=== PATIENT | male | born 1960 | race African-American/Black ===

== ENCOUNTER 2019-08-25 21:28 | Emergency (ER) | payer SELFPAY ==
[2019-08-25 21:39] VITALS: BP 131/80; PULSE 95; TEMP 98.1; BMI 21.9
[2019-08-25] MEDS ORDERED: LIDOCAINE PATCH REMOVAL MC SCH (22:00)
--- NOTE | 2019-08-25 22:12 | PDOC ---
History of Present Illness - General Chief Complaint: Pain Stated Complaint: BACK/LEG PAIN Time Seen by Provider: 08/25/19 22:02 - History of Present Illness Initial Comments: 08/25/19 22:10 CHIEF COMPLAINT: fall HISTORY OF PRESENT ILLNESS: 59 yo with hx of stroke (on Plavix) with residual left sided weakness, diabetes, presents to ED with pain to L leg and low back. Patient reports being in physical therapy after his stroke but had to discontinue due to insurance problems after moving from [place]. Patient states he was walking backwards down the stairs at a friend's house in order to hold on to the only available railing and tripped and fell, hitting his back. Patient denies any trauma to head or LOC. Patient denies any difficulty with speech, change in vision, dizziness, or headache at this time. No recent travel or sick contacts. PAST MEDICAL HISTORY: stroke FAMILY HISTORY: Denies SOCIAL HISTORY: Denies tobacco, alcohol, illicit drug use. SURGICAL HISTORY: Denies ALLERGIES: No known drug allergies REVIEW OF SYSTEMS General/Constitutional: Denies fever or chills. Denies weakness, weight change. HEENT: Denies change in vision. Denies ear pain or discharge. Denies sore throat. Cardiovascular: Denies chest pain or shortness of breath. Respiratory: Denies cough, wheezing, or hemoptysis. Gastrointestinal: Denies nausea, vomiting, diarrhea or constipation. Denies rectal bleeding. Genitourinary: Denies dysuria, frequency, or change in urination. Musculoskeletal: Pain to L leg and back. Skin: Denies rash or easy bruising. Neurologic: Denies headache, vertigo, loss of consciousness, or loss of sensation. Psychiatric: Denies depression or anxiety. PHYSICAL EXAM General Appearance: Well-appearing, appropriately dressed. No apparent distress , no intoxication. HEENT: EOMI, PERRLA, normal ENT inspection, normal voice, TMs normal, pharynx normal. No conjunctival pallor. No photophobia, scleral icterus. Neck: Supple. Trachea midline. No tenderness, rigidity, carotid bruit, stridor , lymphadenopathy, or thyromegaly. Respiratory/Chest: Lungs CTAB. No shortness of breath, chest tenderness, respiratory distress, accessory muscle use. No crackles, rales, rhonchi, stridor , wheezing, dullness Cardiovascular: RRR. S1, S2. No JVD, murmur, bradycardia, tachycardia. Vascular Pulses: Dorsalis-Pedis (R): 2+, Dorsalis-Pedis (L): 2+ Gastrointestinal/Abdominal: Normal bowel sounds. Abdomen soft, non-distended. No tenderness or rebound tenderness. No organomegaly, pulsatile mass, guarding , hernia, hepatomegaly, splenomegaly. Lymphatic: No adenopathy, tenderness. Musculoskeletal/Extremities: Patient ambulatory with cane at baseline with chronic weakness to LUE and LLE. No erythema, ecchymosis, or swelling to L leg. No midline tenderness to spin. Mild tenderness to paravertebral muscles at L3-L5. Normal inspection. FROM of all extremities, normal capillary refill. Pelvis Stable. No CVA tenderness. No tenderness to extremities, pedal edema, swelling, erythema or deformity. Integumentary: Appropriate color, dry, warm. No cyanosis, erythema, jaundice or rash Neurologic: can intake worker II-XII intact. Fully oriented, alert. Appropriate mood/affect. Motor strength 5/5. No appreciable EOM palsy, facial droop or sensory deficit. Past History - Past Medical History Allergies/Adverse Reactions: Allergies Allergy/AdvReac Type Severity Reaction Status Date / Time No Known Allergies Allergy Verified 08/25/19 21:39 Home Medications: Ambulatory Orders Cyclobenzaprine HCl 10 mg PO HS #10 tablet 08/25/19 CVA: Yes (left sided weakness) COPD: No Diabetes: Yes Disorders: Yes (BPH) - Psycho Social/Smoking Cessation Hx Smoking History: Current every day smoker Number of Cigarettes Smoked Daily: 10 Information on smoking cessation initiated: No Hx Alcohol Use: Yes Drug/Substance Use Hx: No *Physical Exam - Vital Signs Last Vital Signs Temp Pulse Resp BP Pulse Ox 98.1 F 95 H 19 131/80 97 08/25/19 21:29 08/25/19 21:29 08/25/19 21:29 08/25/19 21:29 08/25/19 21:29 Medical Decision Making - Medical Decision Making 08/25/19 22:17 59 yo with hx of stroke (on Plavix) with residual left sided weakness, diabetes , presents to ED with pain to L leg and low back. -x-ray hip/knee/femur x-ray wet reads negative. -cyclobenzaprine. Advised patient to take medication as prescribed and follow up with PMR within the next week. Advised patient of signs and symptoms for return to ED. Patient verbalized understanding and agrees to plan. Discharge - Discharge Information Problems reviewed: Yes Clinical Impression/Diagnosis: Fall Qualifiers: Encounter type: initial encounter Qualified Code(s): W19.XXXA - Unspecified fall, initial encounter Leg pain Qualifiers: Laterality: left Qualified Code(s): M79.605 - Pain in left leg Condition: Stable Disposition: HOME - Admission No - Additional Discharge Information Prescriptions: Cyclobenzaprine HCl 10 mg PO HS #10 tablet - Follow up/Referral Referrals: Ortiz Chairez MD [Primary Care Provider] - Reg Menjivar MD [Staff Physician] - Silviano Olguin MD [Staff Physician] - - Patient Discharge Instructions Patient Printed Discharge Instructions: DI for Low Back Pain, DI for Leg Pain - Post Discharge Activity
[2019-08-25] MEDS ORDERED: KETOROLAC TROMETHAMINE 30 MG/1 ML VIAL IM ONE (22:19)
[2019-08-25] MEDS ORDERED: LIDOCAINE 5% TOPICAL PATCH TP ONE (22:20)
--- NOTE | 2019-08-25 22:22 | PDOC ---
History of Present Illness - General Chief Complaint: Pain Stated Complaint: BACK/LEG PAIN Time Seen by Provider: 08/25/19 22:02 - History of Present Illness Initial Comments: 08/25/19 22:21 CHIEF COMPLAINT: fall HISTORY OF PRESENT ILLNESS: 59 yo with hx of stroke (on Plavix) with residual left sided weakness, diabetes, presents to ED with pain to L leg and low back. Patient reports No recent travel or sick contacts. PAST MEDICAL HISTORY: Denies past medical history FAMILY HISTORY: Denies SOCIAL HISTORY: Lives at home with ____. Occupation: . Denies tobacco, alcohol, illicit drug use. SURGICAL HISTORY: Denies ALLERGIES: No known drug allergies REVIEW OF SYSTEMS General/Constitutional: Denies fever or chills. Denies weakness, weight change. HEENT: Denies change in vision. Denies ear pain or discharge. Denies sore throat. Cardiovascular: Denies chest pain or shortness of breath. Respiratory: Denies cough, wheezing, or hemoptysis. Gastrointestinal: Denies nausea, vomiting, diarrhea or constipation. Denies rectal bleeding. Genitourinary: Denies dysuria, frequency, or change in urination. Musculoskeletal: Denies joint or muscle swelling or pain. Denies neck or back pain. Skin and breasts: Denies rash or easy bruising. Neurologic: Denies headache, vertigo, loss of consciousness, or loss of sensation. Psychiatric: Denies depression or anxiety. Endocrine: Denies increased thirst. Denies abnormal weight change. Hematologic/Lymphatic: Denies anemia, easy bleeding, or history of blood clots. Allergic/Immunologic: Denies hives or skin allergy. Denies latex allergy. PHYSICAL EXAM General Appearance: Well-appearing, appropriately dressed. No apparent distress , no intoxication. HEENT: EOMI, PERRLA, normal ENT inspection, normal voice, TMs normal, pharynx normal. No conjunctival pallor. No photophobia, scleral icterus. Neck: Supple. Trachea midline. No tenderness, rigidity, carotid bruit, stridor , lymphadenopathy, or thyromegaly. Respiratory/Chest: Lungs CTAB. No shortness of breath, chest tenderness, respiratory distress, accessory muscle use. No crackles, rales, rhonchi, stridor , wheezing, dullness Cardiovascular: RRR. S1, S2. No JVD, murmur, bradycardia, tachycardia. Vascular Pulses: Dorsalis-Pedis (R): 2+, Dorsalis-Pedis (L): 2+ Gastrointestinal/Abdominal: Normal bowel sounds. Abdomen soft, non-distended. No tenderness or rebound tenderness. No organomegaly, pulsatile mass, guarding , hernia, hepatomegaly, splenomegaly. Lymphatic: No adenopathy, tenderness. Musculoskeletal/Extremities: Normal inspection. FROM of all extremities, normal capillary refill. Pelvis Stable. No CVA tenderness. No tenderness to extremities, pedal edema, swelling, erythema or deformity. Integumentary: Appropriate color, dry, warm. 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 Fully oriented, alert. Appropriate mood/affect. Motor strength 5/5. No appreciable EOM palsy, facial droop or sensory deficit.CHIEF COMPLAINT: HISTORY OF PRESENT ILLNESS: No recent travel or sick contacts. PAST MEDICAL HISTORY: Denies past medical history FAMILY HISTORY: Denies SOCIAL HISTORY: Lives at home with ____. Occupation: . Denies tobacco, alcohol, illicit drug use. SURGICAL HISTORY: Denies ALLERGIES: No known drug allergies REVIEW OF SYSTEMS General/Constitutional: Denies fever or chills. Denies weakness, weight change. HEENT: Denies change in vision. Denies ear pain or discharge. Denies sore throat. Cardiovascular: Denies chest pain or shortness of breath. Respiratory: Denies cough, wheezing, or hemoptysis. Gastrointestinal: Denies nausea, vomiting, diarrhea or constipation. Denies rectal bleeding. Genitourinary: Denies dysuria, frequency, or change in urination. Musculoskeletal: Denies joint or muscle swelling or pain. Denies neck or back pain. Skin and breasts: Denies rash or easy bruising. Neurologic: Denies headache, vertigo, loss of consciousness, or loss of sensation. Psychiatric: Denies depression or anxiety. Endocrine: Denies increased thirst. Denies abnormal weight change. Hematologic/Lymphatic: Denies anemia, easy bleeding, or history of blood clots. Allergic/Immunologic: Denies hives or skin allergy. Denies latex allergy. PHYSICAL EXAM General Appearance: Well-appearing, appropriately dressed. No apparent distress , no intoxication. HEENT: EOMI, PERRLA, normal ENT inspection, normal voice, TMs normal, pharynx normal. No conjunctival pallor. No photophobia, scleral icterus. Neck: Supple. Trachea midline. No tenderness, rigidity, carotid bruit, stridor , lymphadenopathy, or thyromegaly. Respiratory/Chest: Lungs CTAB. No shortness of breath, chest tenderness, respiratory distress, accessory muscle use. No crackles, rales, rhonchi, stridor , wheezing, dullness Cardiovascular: RRR. S1, S2. No JVD, murmur, bradycardia, tachycardia. Vascular Pulses: Dorsalis-Pedis (R): 2+, Dorsalis-Pedis (L): 2+ Gastrointestinal/Abdominal: Normal bowel sounds. Abdomen soft, non-distended. No tenderness or rebound tenderness. No organomegaly, pulsatile mass, guarding , hernia, hepatomegaly, splenomegaly. Lymphatic: No adenopathy, tenderness. Musculoskeletal/Extremities: Normal inspection. FROM of all extremities, normal capillary refill. Pelvis Stable. No CVA tenderness. No tenderness to extremities, pedal edema, swelling, erythema or deformity. Integumentary: Appropriate color, dry, warm. 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 Fully oriented, alert. Appropriate mood/affect. Motor strength 5/5. No appreciable EOM palsy, facial droop or sensory deficit. Past History - Past Medical History Allergies/Adverse Reactions: Allergies Allergy/AdvReac Type Severity Reaction Status Date / Time No Known Allergies Allergy Verified 08/25/19 21:39 CVA: Yes (left sided weakness) COPD: No Diabetes: Yes Disorders: Yes (BPH) - Psycho Social/Smoking Cessation Hx Smoking History: Current every day smoker Number of Cigarettes Smoked Daily: 10 Information on smoking cessation initiated: No Hx Alcohol Use: Yes Drug/Substance Use Hx: No *Physical Exam - Vital Signs Last Vital Signs Temp Pulse Resp BP Pulse Ox 98.1 F 95 H 19 131/80 97 08/25/19 21:29 08/25/19 21:29 08/25/19 21:29 08/25/19 21:29 08/25/19 21:29 ED Treatment Course - RADIOLOGY Radiology Studies Ordered: Category Date Time Status FEMUR-LEFT [RAD] Stat Radiology 08/25/19 22:18 Ordered HIP & PELVIS-LEFT [RAD] Stat Radiology 08/25/19 22:18 Ordered KNEE 3 POS-LEFT [RAD] Stat Radiology 08/25/19 22:18 Ordered Discharge - Follow up/Referral Referrals: Ortiz Chairez MD [Primary Care Provider] - - Patient Discharge Instructions - Post Discharge Activity
[2019-08-25] MEDS ORDERED: LIDOCAINE 5% TOPICAL PATCH ONE (22:28)
== END 2019-08-26 00:25 | disposition home or self-care (01) ==
LOC: JERFT 21:28
DX: M54.5 Low back pain (principal); M79.605 Pain in left leg; W19.XXXA Unspecified fall, initial encounter; Y93.89 Activity, other specified; Y92.89 Other specified places as the place of occurrence of the external cause; Y99.8 Other external cause status; E11.9 Type 2 diabetes mellitus without complications; I69.854 Hemiplegia and hemiparesis following other cerebrovascular disease affecting left non-dominant side; Z99.89 Dependence on other enabling machines and devices; Z79.02 Long term (current) use of antithrombotics/antiplatelets
CPT/HCPCS: 73523-TC-FY; 73552-TC-LT-FY; 73562-TC-LT-FY; 99282-25

== ENCOUNTER 2023-05-29 23:25 | Observation (INO) | payer OTHER ==
[2023-05-30] MEDS ORDERED: ACETAMINOPHEN 1000 MG/100 ML BAG IVPB ONE (00:19)
[2023-05-30] MEDS ORDERED: ACETAMINOPHEN INJECTION 100 ML IVPB ONE (00:30)
[2023-05-30 01:18] LABS: BASO % 0.5 % (0-2.0); EOS % 0.1 % (0-4.5); HEMOGLOBIN 15.2 GM/dL (11.7-16.9); LYMPH % 16.6 % (8-40); MCH 31.2 pg (25.7-33.7); MCHC 35.3 g/dl (32.0-35.9); MEAN CELL VOLUME 88.4 fl (80-96); MEAN PLT VOLUME 7.9 fl (7.5-11.1); MONO % 5.1 % (3.8-10.2); NEUT % 77.7 % (42.8-82.8); PLATELET COUNT 363 10^3/uL (134-434); RBC 4.86 M/mm3 (4.00-5.60); RDW 13.9 % (11.9-15.9); WHITE BLOOD COUNT 9.5 K/mm3 (4.0-10.0)
[2023-05-30 01:27] LABS: INR 0.93 (0.83-1.09); PROTHROMBIN TIME (PATIENT) 10.8 SEC (9.7-13.0)
[2023-05-30 01:29] LABS: ACTIVATED PTT 31.5 SECONDS (25.2-36.5)
[2023-05-30 01:49] LABS: ALBUMIN 4.1 g/dl (3.4-5.0); BLOOD UREA NITROGEN 10.1 mg/dL (7-18); CALCIUM 9.5 mg/dL (8.5-10.1); POTASSIUM 4.2 mmol/L (3.5-5.1)
[2023-05-30 01:51] LABS: CREATININE 0.9 mg/dL (0.55-1.3)
[2023-05-30 01:52] LABS: BILIRUBIN,TOTAL 0.5 mg/dL (0.2-1); TOT PROT 8.3 g/dl (6.4-8.2)
[2023-05-30] MEDS ORDERED: LORazepam 2 MG/ML SDV VIAL IVPUSH PRN (04:50)
[2023-05-30] MEDS ORDERED: FOLIC ACID INJECTION - 1 MG, THIAMINE HCL 100 MG, MULTIVIT INJECTION ADULT 10 ML in SOD... IVPB ONE (05:30)
[2023-05-30 06:04] LABS: URINE AMPHETAMINES NEGATIVE (NEGATIVE)
[2023-05-30 06:05] LABS: OPIATES, URI NEGATIVE (NEGATIVE); PHENCYCLIDINE,URINE NEGATIVE (NEGATIVE)
[2023-05-30 06:14] LABS: URINE APPEARANCE CLEAR; URINE BILIRUBIN NEGATIVE (NEGATIVE); URINE COLOR YELLOW; URINE GLUCOSE (UA) NEGATIVE (NEGATIVE); URINE KETONE TRACE (NEGATIVE); URINE LEUK ESTERASE NEGATIVE (NEGATIVE); URINE NITRITE NEGATIVE (NEGATIVE); URINE PROTEIN NEGATIVE (NEGATIVE)
[2023-05-30] MEDS: INSULIN SLIDING SCALE (NOVOLOG) 1 VIAL SQ SCH ×3 (06:20→16:29)
[2023-05-30 07:28] LABS: COCAINE, UR NEGATIVE (NEGATIVE); METHADONE, UR NEGATIVE (NEGATIVE); URINE BARBITURATES NEGATIVE (NEGATIVE); URINE BENZODIAZEPINES NEGATIVE (NEGATIVE)
[2023-05-30] MEDS: ENOXAPARIN NA (PORCINE) 40 MG/0.4 ML DISP.SYRIN SQ SCH (10:04)
[2023-05-30] MEDS: NICOTINE 7 MG/24 HOURS TOPICAL PATCH TD SCH (10:04)
[2023-05-30] MEDS: FOLIC ACID 1 MG TABLET (FP) PO SCH (10:04)
[2023-05-30] MEDS: THIAMINE HCL 200 MG/2 ML VIAL IVPB SCH (10:04)
[2023-05-30 13:02] LABS: BASO % 0.8 % (0-2.0); HEMATOCRIT 37.2 % (35.4-49); HEMOGLOBIN 12.8 GM/dL (11.7-16.9); LYMPH % 23.7 % (8-40); MCH 30.3 pg (25.7-33.7); MCHC 34.3 g/dl (32.0-35.9); MEAN CELL VOLUME 88.4 fl (80-96); MEAN PLT VOLUME 7.8 fl (7.5-11.1); MONO % 10.9 % (3.8-10.2); NEUT % 63.6 % (42.8-82.8); PLATELET COUNT 303 10^3/uL (134-434); RBC 4.21 M/mm3 (4.00-5.60); RDW 13.8 % (11.9-15.9)
[2023-05-30 13:21] LABS: POTASSIUM 3.8 mmol/L (3.5-5.1)
[2023-05-30 13:24] LABS: BLOOD UREA NITROGEN 11.4 mg/dL (7-18); CALCIUM 8.7 mg/dL (8.5-10.1); MAGNESIUM 1.6 mg/dL (1.8-2.4)
[2023-05-30 13:26] LABS: CHOLESTEROL 189 mg/dL (50-200)
[2023-05-30 13:27] LABS: CREATININE 0.8 mg/dL (0.55-1.3); LDL CHOLESTEROL (ONLY SJRH) 87 mg/dL (5-100); PHOSPHOROUS 3.4 mg/dL (2.5-4.9)
[2023-05-30 13:28] LABS: BILIRUBIN,TOTAL 0.7 mg/dL (0.2-1)
[2023-05-30 13:30] LABS: HDL CHOLESTEROL 88 mg/dL (40-60)
[2023-05-30 13:35] LABS: TOT PROT 6.2 g/dl (6.4-8.2)
[2023-05-31] MEDS ORDERED: ACETAMINOPHEN 1000 MG/100 ML BAG IVPB ONE ×2 (01:25→09:55)
[2023-05-31] MEDS: ENOXAPARIN NA (PORCINE) 40 MG/0.4 ML DISP.SYRIN SQ SCH (09:49)
[2023-05-31] MEDS: NICOTINE 7 MG/24 HOURS TOPICAL PATCH TD SCH (09:49)
[2023-05-31] MEDS: FOLIC ACID 1 MG TABLET (FP) PO SCH (09:49)
[2023-05-31] MEDS: THIAMINE HCL 200 MG/2 ML VIAL IVPB SCH (09:49)
[2023-05-31] MEDS ORDERED: MAGNESIUM SULF 50% (8.12 MEQ/2 ML-1 GM VIAL) IVPB ONE (13:15)
[2023-05-31] MEDS ORDERED: ACETAMINOPHEN 325 MG TABLET (FP) PO ONE (20:41)
[2023-06-01] MEDS ORDERED: ACETAMINOPHEN 325 MG TABLET (FP) PO ONE (06:30)
[2023-06-01 07:21] LABS: HEMATOCRIT 39.3 % (35.4-49); HEMOGLOBIN 13.8 GM/dL (11.7-16.9); MCH 31.1 pg (25.7-33.7); MEAN CELL VOLUME 88.7 fl (80-96); PLATELET COUNT 320 10^3/uL (134-434); RBC 4.44 M/mm3 (4.00-5.60); RDW 13.5 % (11.9-15.9); WHITE BLOOD COUNT 7.1 K/mm3 (4.0-10.0)
[2023-06-01 07:52] LABS: ALBUMIN 2.9 g/dl (3.4-5.0); BLOOD UREA NITROGEN 11.6 mg/dL (7-18); CALCIUM 8.6 mg/dL (8.5-10.1); MAGNESIUM 2.1 mg/dL (1.8-2.4)
[2023-06-01 07:53] LABS: PHOSPHOROUS 3.9 mg/dL (2.5-4.9)
[2023-06-01 07:55] LABS: BILIRUBIN,TOTAL 0.3 mg/dL (0.2-1); CREATININE 0.7 mg/dL (0.55-1.3); TOT PROT 6.1 g/dl (6.4-8.2)
[2023-06-01] MEDS: ENOXAPARIN NA (PORCINE) 40 MG/0.4 ML DISP.SYRIN SQ SCH (10:51)
[2023-06-01] MEDS: THIAMINE HCL 200 MG/2 ML VIAL IVPB SCH (10:51)
[2023-06-01] MEDS: NICOTINE 7 MG/24 HOURS TOPICAL PATCH TD SCH (10:51)
[2023-06-01] MEDS: FOLIC ACID 1 MG TABLET (FP) PO SCH (10:51)
[2023-06-01 14:24] VITALS: BMI 19.4
[2023-06-01] MEDS: ACETAMINOPHEN 325 MG TABLET (FP) PO PRN (16:26)
[2023-06-02 08:47] LABS: HEMATOCRIT 38.6 % (35.4-49); HEMOGLOBIN 13.7 GM/dL (11.7-16.9); MCH 31.3 pg (25.7-33.7); MCHC 35.5 g/dl (32.0-35.9); MEAN PLT VOLUME 8.1 fl (7.5-11.1); PLATELET COUNT 317 10^3/uL (134-434); RBC 4.39 M/mm3 (4.00-5.60); RDW 13.5 % (11.9-15.9); WHITE BLOOD COUNT 7.4 K/mm3 (4.0-10.0)
[2023-06-02 09:15] LABS: CALCIUM 8.3 mg/dL (8.5-10.1)
[2023-06-02 09:16] LABS: BLOOD UREA NITROGEN 12.3 mg/dL (7-18)
[2023-06-02 09:19] LABS: CREATININE 0.8 mg/dL (0.55-1.3)
[2023-06-02] MEDS: NICOTINE 7 MG/24 HOURS TOPICAL PATCH TD SCH (10:20)
[2023-06-02] MEDS: FOLIC ACID 1 MG TABLET (FP) PO SCH (10:20)
[2023-06-02] MEDS: THIAMINE HCL 200 MG/2 ML VIAL IVPB SCH (10:20)
[2023-06-02] MEDS: ENOXAPARIN NA (PORCINE) 40 MG/0.4 ML DISP.SYRIN SQ SCH (10:20)
[2023-06-02] MEDS: ACETAMINOPHEN 325 MG TABLET (FP) PO PRN (11:22)
[2023-06-02] MEDS: IBUPROFEN 400 MG TABLET (FP) PO PRN (19:42)
[2023-06-03] MEDS: IBUPROFEN 400 MG TABLET (FP) PO PRN ×2 (03:43→15:54)
[2023-06-03 08:03] LABS: HEMOGLOBIN 13.4 GM/dL (11.7-16.9); MCH 31.1 pg (25.7-33.7); MCHC 35.2 g/dl (32.0-35.9); MEAN CELL VOLUME 88.2 fl (80-96); MEAN PLT VOLUME 7.7 fl (7.5-11.1); PLATELET COUNT 328 10^3/uL (134-434); RBC 4.31 M/mm3 (4.00-5.60); RDW 13.8 % (11.9-15.9); WHITE BLOOD COUNT 7.4 K/mm3 (4.0-10.0)
[2023-06-03 08:15] LABS: POTASSIUM 4.3 mmol/L (3.5-5.1)
[2023-06-03 08:19] LABS: CALCIUM 8.8 mg/dL (8.5-10.1)
[2023-06-03 08:20] LABS: BLOOD UREA NITROGEN 11.6 mg/dL (7-18); MAGNESIUM 1.9 mg/dL (1.8-2.4)
[2023-06-03 08:23] LABS: CREATININE 0.7 mg/dL (0.55-1.3); PHOSPHOROUS 4.1 mg/dL (2.5-4.9)
[2023-06-03] MEDS: PANTOPRAZOLE 40 MG TABLET PO SCH (10:44)
[2023-06-03] MEDS: THIAMINE HCL 200 MG/2 ML VIAL IVPB SCH (10:44)
[2023-06-03] MEDS: ENOXAPARIN NA (PORCINE) 40 MG/0.4 ML DISP.SYRIN SQ SCH (10:44)
[2023-06-03] MEDS: FOLIC ACID 1 MG TABLET (FP) PO SCH (10:44)
[2023-06-03] MEDS: ASPIRIN COATED 81 MG TABLET.EC PO SCH (10:44)
[2023-06-03] MEDS: NICOTINE 7 MG/24 HOURS TOPICAL PATCH TD SCH (10:45)
[2023-06-04] MEDS: IBUPROFEN 400 MG TABLET (FP) PO PRN (01:16)
[2023-06-04 07:06] LABS: HEMATOCRIT 38.3 % (35.4-49); HEMOGLOBIN 13.3 GM/dL (11.7-16.9); MCHC 34.7 g/dl (32.0-35.9); MEAN CELL VOLUME 89.4 fl (80-96); MEAN PLT VOLUME 7.5 fl (7.5-11.1); PLATELET COUNT 352 10^3/uL (134-434); RBC 4.29 M/mm3 (4.00-5.60); RDW 13.6 % (11.9-15.9); WHITE BLOOD COUNT 7.3 K/mm3 (4.0-10.0)
[2023-06-04 07:21] LABS: POTASSIUM 4.2 mmol/L (3.5-5.1)
[2023-06-04 07:34] LABS: BILIRUBIN,TOTAL 0.4 mg/dL (0.2-1); BLOOD UREA NITROGEN 15.1 mg/dL (7-18); CALCIUM 8.8 mg/dL (8.5-10.1); CREATININE 0.9 mg/dL (0.55-1.3); PHOSPHOROUS 4.3 mg/dL (2.5-4.9); TOT PROT 6.1 g/dl (6.4-8.2)
[2023-06-04] MEDS: THIAMINE HCL 200 MG/2 ML VIAL IVPB SCH (09:56)
[2023-06-04] MEDS: FOLIC ACID 1 MG TABLET (FP) PO SCH (09:56)
[2023-06-04] MEDS: ASPIRIN COATED 81 MG TABLET.EC PO SCH (09:56)
[2023-06-04] MEDS: ACETAMINOPHEN 325 MG TABLET (FP) PO PRN ×2 (09:57→15:37)
[2023-06-04] MEDS: PANTOPRAZOLE 40 MG TABLET PO SCH (09:57)
[2023-06-04] MEDS: ENOXAPARIN NA (PORCINE) 40 MG/0.4 ML DISP.SYRIN SQ SCH (09:58)
[2023-06-04] MEDS: NICOTINE 7 MG/24 HOURS TOPICAL PATCH TD SCH (09:58)
[2023-06-05] MEDS: PANTOPRAZOLE 40 MG TABLET PO SCH (09:51)
[2023-06-05] MEDS: FOLIC ACID 1 MG TABLET (FP) PO SCH (09:51)
[2023-06-05] MEDS: IBUPROFEN 400 MG TABLET (FP) PO PRN (09:52)
[2023-06-05] MEDS: NICOTINE 7 MG/24 HOURS TOPICAL PATCH TD SCH (09:53)
[2023-06-05] MEDS: THIAMINE HCL 100 MG TABLET (FP) PO SCH (09:53)
[2023-06-05] MEDS: ENOXAPARIN NA (PORCINE) 40 MG/0.4 ML DISP.SYRIN SQ SCH (09:53)
[2023-06-05] MEDS: ASPIRIN COATED 81 MG TABLET.EC PO SCH (09:53)
[2023-06-06] MEDS: IBUPROFEN 400 MG TABLET (FP) PO PRN (02:12)
[2023-06-06] MEDS: THIAMINE HCL 100 MG TABLET (FP) PO SCH (10:23)
[2023-06-06] MEDS: FOLIC ACID 1 MG TABLET (FP) PO SCH (10:23)
[2023-06-06] MEDS: ENOXAPARIN NA (PORCINE) 40 MG/0.4 ML DISP.SYRIN SQ SCH (10:23)
[2023-06-06] MEDS: ASPIRIN COATED 81 MG TABLET.EC PO SCH (10:23)
[2023-06-06] MEDS: PANTOPRAZOLE 40 MG TABLET PO SCH (10:23)
[2023-06-06] MEDS: ACETAMINOPHEN 325 MG TABLET (FP) PO PRN (10:32)
[2023-06-06] MEDS: NICOTINE 7 MG/24 HOURS TOPICAL PATCH TD SCH (11:21)
[2023-06-06 15:24] VITALS: RESP 18
[2023-06-07] MEDS ORDERED: IBUPROFEN 400 MG TABLET (FP) PO PRN (07:29)
[2023-06-07] MEDS: FOLIC ACID 1 MG TABLET (FP) PO SCH (09:09)
[2023-06-07] MEDS: THIAMINE HCL 100 MG TABLET (FP) PO SCH (09:10)
[2023-06-07] MEDS: ASPIRIN COATED 81 MG TABLET.EC PO SCH (09:10)
[2023-06-07] MEDS: ENOXAPARIN NA (PORCINE) 40 MG/0.4 ML DISP.SYRIN SQ SCH (09:10)
[2023-06-07] MEDS: PANTOPRAZOLE 40 MG TABLET PO SCH (09:10)
[2023-06-07] MEDS: NICOTINE 7 MG/24 HOURS TOPICAL PATCH TD SCH (09:11)
[2023-06-07] MEDS: ACETAMINOPHEN 325 MG TABLET (FP) PO PRN (10:54)
[2023-06-07] MEDS ORDERED: ATORVASTATIN CA 40 MG TABLET (FP) PO SCH (22:00)
[2023-06-08] MEDS: ACETAMINOPHEN 325 MG TABLET (FP) PO PRN (05:46)
[2023-06-08] MEDS: PANTOPRAZOLE 40 MG TABLET PO SCH (10:44)
[2023-06-08] MEDS: THIAMINE HCL 100 MG TABLET (FP) PO SCH (10:44)
[2023-06-08] MEDS: FOLIC ACID 1 MG TABLET (FP) PO SCH (10:44)
[2023-06-08] MEDS: NICOTINE 7 MG/24 HOURS TOPICAL PATCH TD SCH (10:45)
[2023-06-08] MEDS: ENOXAPARIN NA (PORCINE) 40 MG/0.4 ML DISP.SYRIN SQ SCH (10:45)
[2023-06-08] MEDS: ASPIRIN COATED 81 MG TABLET.EC PO SCH (10:45)
[2023-06-08 15:14] VITALS: BP 106/72; PULSE 89; TEMP 98.2
== END 2023-06-08 17:31 ==
LOC: JER 23:25 → JERBED 05-30 02:42 → J4S 05-30 05:58 → J5S 06-05 14:52 → UNDODISOB 06-05 16:24
PROVIDERS: ADMIT Internal Medicine; ATTEND Internal Medicine
PROC: 3E033NZ Introduction of Analgesics, Hypnotics, Sedatives into Peripheral Vein, Percutaneous Approach (ICD-10-PCS; principal; 2023-05-30)
PROC: 3E033GC Introduction of Other Therapeutic Substance into Peripheral Vein, Percutaneous Approach (ICD-10-PCS; 2023-05-30)
DX: F10.99 Alcohol use, unspecified with unspecified alcohol-induced disorder (principal); Z59.00 Homelessness unspecified; W18.39XA Other fall on same level, initial encounter; E11.9 Type 2 diabetes mellitus without complications; Y93.89 Activity, other specified; R68.84 Jaw pain; Y92.89 Other specified places as the place of occurrence of the external cause; N40.0 Benign prostatic hyperplasia without lower urinary tract symptoms; I10 Essential (primary) hypertension; Z29.8 Encounter for other specified prophylactic measures; I69.954 Hemiplegia and hemiparesis following unspecified cerebrovascular disease affecting left non-dominant side; F17.210 Nicotine dependence, cigarettes, uncomplicated
CPT/HCPCS: 36415; 70450-TC; 70486-TC; 71045-TC-FY; 72125-TC; 72170-TC-FY; 73552-TC-LT-FY; 80048; 80053; 80061; 80307; 81003; 82550; 82553; 82962; 83036; 83735; 84100; 84443; 84484; 85025; 85027; 85610; 85730; 87086; 87635; 93005; 93010; 96365; 96372; 96375; 96376; 97116-GP; 97161-GP; 99285-25; G0378

== ENCOUNTER 2023-07-20 20:39 | Emergency (ER) | payer OTHER ==
[2023-07-20 21:21] VITALS: BMI 20.3
[2023-07-20] MEDS ORDERED: ACETAMINOPHEN 500 MG TABLET (FP) PO ONE (23:59)
[2023-07-21] MEDS ORDERED: ACETAMINOPHEN 500 MG TABLET (FP) ONE (00:04)
[2023-07-21 02:40] VITALS: BP 173/79; PULSE 67; RESP 18; TEMP 98.7
== END 2023-07-21 03:55 | disposition home or self-care (01) ==
LOC: JER 20:39
DX: M25.512 Pain in left shoulder (principal); M25.522 Pain in left elbow; M25.572 Pain in left ankle and joints of left foot; R51.9 Headache, unspecified; M54.2 Cervicalgia; W19.XXXA Unspecified fall, initial encounter
CPT/HCPCS: 70450-TC; 72125-TC; 73030-TC-LT-FY; 73070-TC-LT-FY; 73090-TC-LT-FY; 73590-TC-LT-FY; 73610-TC-LT-FY; 73630-TC-LT; 99284-25

== ENCOUNTER 2024-11-29 22:13 | Inpatient (IN) | payer OTHER ==
[2024-11-30 01:05] LABS: HEMATOCRIT 39.2 % (40.1-51.0); HEMOGLOBIN 13.7 g/dL (13.7-17.5); MCHC 34.9 g/dl (32.3-36.5); MEAN CELL VOLUME 84.8 fl (79.0-92.2); MEAN PLT VOLUME 8.9 fl (9.4-12.4); PLATELET COUNT 338 x10^3/uL (163-337); RDW 12.5 % (12.2-16.4)
[2024-11-30] MEDS: SODIUM CHLORIDE 1,000 ML IV STA ×3 (01:13→04:26)
[2024-11-30 01:24] LABS: POTASSIUM 3.5 mmol/L (3.5-5.1)
[2024-11-30 01:26] LABS: BLOOD UREA NITROGEN 11.6 mg/dL (7-18); CALCIUM 9.2 mg/dL (8.5-10.1)
[2024-11-30 01:30] LABS: ALBUMIN 3.1 g/dl (3.4-5.0); CREATININE 0.9 mg/dL (0.55-1.3)
[2024-11-30 01:31] LABS: BILIRUBIN,TOTAL 0.3 mg/dL (0.2-1); TOT PROT 7.1 g/dl (6.4-8.2)
[2024-11-30] MEDS ORDERED: KETOROLAC TROMETHAMINE 30 MG/1 ML VIAL ONE (03:06)
[2024-11-30] MEDS: KETOROLAC TROMETHAMINE 30 MG/1 ML VIAL IVPUSH ONE (03:14)
[2024-11-30 03:41] LABS: EPI CELLS 3 /uL (0-25.1); HYALINE CASTS 0 /uL (0-3.1); PH,URINE 5.5 (5.0-8.0); URINE APPEARANCE CLOUDY; URINE BACTERIA >9,000 /uL (0-1359); URINE BILIRUBIN NEGATIVE (NEGATIVE); URINE COLOR YELLOW; URINE GLUCOSE (UA) NEGATIVE (NEGATIVE); URINE KETONE NEGATIVE (NEGATIVE); URINE LEUK ESTERASE 3+ (NEGATIVE); URINE NITRITE POSITIVE (NEGATIVE); URINE PROTEIN 1+ (NEGATIVE); URINE RBC 132 /uL (0-23.9); URINE WBC 2698 /uL (0-25.8)
[2024-11-30] MEDS: ACETAMINOPHEN 325 MG TABLET (FP) PO PRN ×2 (10:43→20:01)
[2024-11-30] MEDS: ENOXAPARIN NA (PORCINE) 40 MG/0.4 ML DISP.SYRIN SQ SCH (10:44)
[2024-11-30] MEDS: CEFTRIAXONE 1 G/50 ML PREMIX 50 ML IVPB ONE (10:45)
[2024-11-30] MEDS: SODIUM CHLORIDE 1,000 ML IV SCH (10:45)
[2024-11-30] MEDS ORDERED: LORazepam 2 MG/ML SDV VIAL IVPUSH PRN ×2 (10:50→23:33)
[2024-11-30] MEDS: chlordiazePOXIDE HCL 25 MG CAPSULE PO SCH (11:19)
[2024-11-30] MEDS: MULTIVITAMINS (DAILY MVI) TABLET (FP) PO SCH (11:20)
[2024-11-30] MEDS: THIAMINE 100 MG TABLET PO SCH (11:21)
[2024-11-30] MEDS ORDERED: CycloBENZAprine HCL 10 MG TABLET (FP) PO PRN (11:23)
[2024-11-30] MEDS: ATORVASTATIN CA 40 MG TABLET (FP) PO SCH (21:16)
[2024-12-01] MEDS: guaiFENesin 200 MG/10 ML 10 ML UNIT-DOSE CUPS PO PRN (02:23)
[2024-12-01] MEDS: chlordiazePOXIDE HCL 25 MG CAPSULE PO SCH (05:44)
[2024-12-01 09:03] LABS: HEMATOCRIT 37.9 % (40.1-51.0); HEMOGLOBIN 12.8 g/dL (13.7-17.5); MCHC 33.8 g/dl (32.3-36.5); MEAN CELL VOLUME 87.1 fl (79.0-92.2); MEAN PLT VOLUME 9.1 fl (9.4-12.4); PLATELET COUNT 348 x10^3/uL (163-337); RDW 12.7 % (12.2-16.4)
[2024-12-01 09:27] LABS: POTASSIUM 3.7 mmol/L (3.5-5.1)
[2024-12-01 09:35] LABS: BLOOD UREA NITROGEN 8.4 mg/dL (7-18); CALCIUM 8.9 mg/dL (8.5-10.1)
[2024-12-01 09:38] LABS: CREATININE 0.7 mg/dL (0.55-1.3)
[2024-12-01 09:39] LABS: ALBUMIN 2.3 g/dl (3.4-5.0)
[2024-12-01 09:40] LABS: BILIRUBIN,TOTAL 0.3 mg/dL (0.2-1); TOT PROT 5.7 g/dl (6.4-8.2)
[2024-12-01] MEDS: FOLIC ACID 1 MG TABLET (FP) PO SCH (10:14)
[2024-12-01] MEDS: NICOTINE 14 MG/24 HOURS TOPICAL PATCH TD SCH (10:14)
[2024-12-01] MEDS: LISINOPRIL 20 MG TABLET PO SCH (10:14)
[2024-12-01] MEDS: CEFTRIAXONE 1 G/50 ML PREMIX 50 ML IVPB SCH (10:14)
[2024-12-01] MEDS: ASPIRIN 81 MG CHEWABLE TABLETS PO SCH (10:17)
[2024-12-01] MEDS: CycloBENZAprine HCL 5 MG TABLET PO PRN (17:20)
[2024-12-01] MEDS: amLODIPine BESYLATE 2.5 MG TABLET (FP) PO ONE (22:43)
[2024-12-02 09:19] LABS: ABSOLUTE IMMATURE GRANULOCYTES 0.06 x10^3/uL (0.0-0.031); BASOPHILS # 0.04 x10^3/uL (0.01-0.08); EOSINOPHIL % 1.9 % (0.8-7.0); EOSINOPHILS # 0.19 x10^3/uL (0.04-0.54); HEMATOCRIT 36.2 % (40.1-51.0); HEMOGLOBIN 12.5 g/dL (13.7-17.5); MCHC 34.5 g/dl (32.3-36.5); MEAN CELL VOLUME 86.6 fl (79.0-92.2); MONOCYTE # 1.13 x10^3/uL (0.30-0.82); MONOCYTE % 11.1 % (5.3-12.2); PLATELET COUNT 403 x10^3/uL (163-337); RDW 12.8 % (12.2-16.4)
[2024-12-02 09:39] LABS: POTASSIUM 3.7 mmol/L (3.5-5.1)
[2024-12-02 09:41] LABS: ALBUMIN 2.3 g/dl (3.4-5.0); CALCIUM 8.8 mg/dL (8.5-10.1); MAGNESIUM 1.8 mg/dL (1.8-2.4)
[2024-12-02 09:44] LABS: CREATININE 0.6 mg/dL (0.55-1.3)
[2024-12-02 09:45] LABS: BILIRUBIN,TOTAL 0.5 mg/dL (0.2-1); TOT PROT 5.9 g/dl (6.4-8.2)
[2024-12-02] MEDS: chlordiazePOXIDE HCL 25 MG CAPSULE PO SCH (10:01)
[2024-12-02 10:43] VITALS: BMI 19.2
[2024-12-02] MEDS: amLODIPine BESYLATE 2.5 MG TABLET (FP) PO SCH (11:40)
[2024-12-04 09:13] LABS: ABSOLUTE IMMATURE GRANULOCYTES 0.09 x10^3/uL (0.0-0.031); BASOPHILS # 0.06 x10^3/uL (0.01-0.08); EOSINOPHIL % 1.4 % (0.8-7.0); EOSINOPHILS # 0.17 x10^3/uL (0.04-0.54); HEMATOCRIT 35.9 % (40.1-51.0); HEMOGLOBIN 12.3 g/dL (13.7-17.5); MCHC 34.3 g/dl (32.3-36.5); MEAN CELL VOLUME 86.1 fl (79.0-92.2); MEAN PLT VOLUME 8.6 fl (9.4-12.4); MONOCYTE # 0.97 x10^3/uL (0.30-0.82); MONOCYTE % 8.2 % (5.3-12.2); PLATELET COUNT 501 x10^3/uL (163-337); RDW 12.7 % (12.2-16.4)
[2024-12-05 09:19] LABS: ABSOLUTE IMMATURE GRANULOCYTES 0.06 x10^3/uL (0.0-0.031); BASOPHILS # 0.06 x10^3/uL (0.01-0.08); EOSINOPHIL % 1.8 % (0.8-7.0); EOSINOPHILS # 0.18 x10^3/uL (0.04-0.54); HEMATOCRIT 37.2 % (40.1-51.0); HEMOGLOBIN 12.6 g/dL (13.7-17.5); MCHC 33.9 g/dl (32.3-36.5); MEAN CELL VOLUME 86.3 fl (79.0-92.2); MEAN PLT VOLUME 8.6 fl (9.4-12.4); MONOCYTE # 0.63 x10^3/uL (0.30-0.82); MONOCYTE % 6.2 % (5.3-12.2); PLATELET COUNT 583 x10^3/uL (163-337); RDW 12.9 % (12.2-16.4)
[2024-12-05] MEDS ORDERED: ASPIRIN 81 MG CHEWABLE TABLETS ONE (10:25)
[2024-12-05] MEDS: ACETAMINOPHEN 500 MG TABLET (FP) PO PRN (11:40)
[2024-12-06 08:46] LABS: ABSOLUTE IMMATURE GRANULOCYTES 0.05 x10^3/uL (0.0-0.031); BASOPHILS # 0.07 x10^3/uL (0.01-0.08); EOSINOPHILS # 0.16 x10^3/uL (0.04-0.54); HEMATOCRIT 37.8 % (40.1-51.0); HEMOGLOBIN 12.9 g/dL (13.7-17.5); MCHC 34.1 g/dl (32.3-36.5); MEAN CELL VOLUME 86.5 fl (79.0-92.2); MEAN PLT VOLUME 8.3 fl (9.4-12.4); MONOCYTE # 0.52 x10^3/uL (0.30-0.82); MONOCYTE % 6.6 % (5.3-12.2); PLATELET COUNT 591 x10^3/uL (163-337); RDW 12.6 % (12.2-16.4)
[2024-12-06 09:14] LABS: POTASSIUM 4.7 mmol/L (3.5-5.1)
[2024-12-06 09:21] LABS: CALCIUM 9.4 mg/dL (8.5-10.1)
[2024-12-06 09:22] LABS: BLOOD UREA NITROGEN 11.6 mg/dL (7-18)
[2024-12-06 09:25] LABS: CREATININE 0.8 mg/dL (0.55-1.3)
[2024-12-10 08:56] LABS: ABSOLUTE IMMATURE GRANULOCYTES 0.04 x10^3/uL (0.0-0.031); BASOPHILS # 0.08 x10^3/uL (0.01-0.08); EOSINOPHIL % 2.4 % (0.8-7.0); EOSINOPHILS # 0.21 x10^3/uL (0.04-0.54); HEMATOCRIT 40.3 % (40.1-51.0); HEMOGLOBIN 13.8 g/dL (13.7-17.5); MCHC 34.2 g/dl (32.3-36.5); MEAN CELL VOLUME 85.7 fl (79.0-92.2); MEAN PLT VOLUME 8.1 fl (9.4-12.4); MONOCYTE # 0.63 x10^3/uL (0.30-0.82); MONOCYTE % 7.1 % (5.3-12.2); PLATELET COUNT 681 x10^3/uL (163-337); RDW 12.7 % (12.2-16.4)
[2024-12-10 09:14] LABS: POTASSIUM 4.3 mmol/L (3.5-5.1)
[2024-12-10 09:18] LABS: BLOOD UREA NITROGEN 11.6 mg/dL (7-18); CALCIUM 10.2 mg/dL (8.5-10.1); CREATININE 0.8 mg/dL (0.55-1.3)
[2024-12-12 16:12] VITALS: BP 113/68; PULSE 95; RESP 20; TEMP 97.7
== END 2024-12-12 18:45 | disposition home or self-care (01) | DRG 501 ==
LOC: JER 22:13 → JERBED 11-30 07:52 → J5S 11-30 09:29
PROVIDERS: ADMIT Internal Medicine; ATTEND Internal Medicine
DX: N45.1 Epididymitis (principal); I10 Essential (primary) hypertension; N31.9 Neuromuscular dysfunction of bladder, unspecified; F10.90 Alcohol use, unspecified, uncomplicated; F17.210 Nicotine dependence, cigarettes, uncomplicated; N39.0 Urinary tract infection, site not specified; N40.1 Benign prostatic hyperplasia with lower urinary tract symptoms; N43.3 Hydrocele, unspecified; I69.354 Hemiplegia and hemiparesis following cerebral infarction affecting left non-dominant side; B96.20 Unspecified Escherichia coli [E. coli] as the cause of diseases classified elsewhere
CPT/HCPCS: 0241U-QW; 36415; 71046-TC-FY; 76870-TC; 80048; 80053; 81003; 83735; 84100; 85025; 85027; 87086; 87186; 87491; 87591; 93005; 93010; 97116-GP; 97162-GP; 99285-25